=== PATIENT | female | born 1950 | race Caucasian/White ===

== ENCOUNTER 2017-10-01 19:08 | Inpatient (IN) | payer OTHER ==
[~2017-10-01] VITALS: Ht 152.4 cm; Wt 77.1 kg
[2017-10-01] MEDS ORDERED: DOXAZOSIN MESYLA1 GM (19:23)
[2017-10-01] MEDS ORDERED: ISORDIL10 MG (19:24)
[2017-10-01] MEDS ORDERED: ZYLOPRIM100 M1 (19:24)
[2017-10-01] MEDS ORDERED: ATORVASTATIN CA40 MG (19:24)
[2017-10-01] MEDS ORDERED: ASPIR 8181 MG (19:25)
[2017-10-01] MEDS ORDERED: TOPROL XL100 M1 (19:25)
[2017-10-01] MEDS ORDERED: HYDRALAZINE HCL50 MG (19:25)
[2017-10-01] MEDS ORDERED: OMEPRAZOLE20 MG (19:26)
[2017-10-01] MEDS ORDERED: NIFE60TA3 (19:26)
== END 2017-10-15 15:49 | disposition home or self-care (01) | DRG 281 ==
LOC: ER 19:08 → ICU 10-02 09:29 → ICU-2 10-02 09:29 → ICU 10-04 12:37 → MEDJ 10-08 17:45 → MEDI 10-08 17:45 → MEDJ 10-08 17:49
PROC: B246ZZZ Ultrasonography of Right and Left Heart (ICD-10-PCS; 2017-10-05)
PROC: 02HV33Z Insertion of Infusion Device into Superior Vena Cava, Percutaneous Approach (ICD-10-PCS; principal; 2017-10-07)
PROC: 4A12X4Z Monitoring of Cardiac Electrical Activity, External Approach (ICD-10-PCS; 2017-10-08)
PROC: 4A12XM4 Monitoring of Cardiac Stress, External Approach (ICD-10-PCS; 2017-10-14)
PROC: 3E033HZ Introduction of Radioactive Substance into Peripheral Vein, Percutaneous Approach (ICD-10-PCS; 2017-10-14)
DX: R00.1 Bradycardia, unspecified (principal); I21.19 ST elevation (STEMI) myocardial infarction involving other coronary artery of inferior wall; N17.8 Other acute kidney failure; I16.9 Hypertensive crisis, unspecified; I24.8 Other forms of acute ischemic heart disease; I95.89 Other hypotension; E86.0 Dehydration; I13.10 Hypertensive heart and chronic kidney disease without heart failure, with stage 1 through stage 4 chronic kidney disease, or unspecified chronic kidney disease; N18.2 Chronic kidney disease, stage 2 (mild); D72.828 Other elevated white blood cell count; A49.3 Mycoplasma infection, unspecified site